=== PATIENT | male | born 1980 | race Caucasian/White ===

== ENCOUNTER 2020-06-15 09:09 | Outpatient (REF) | payer OTHER, SELFPAY ==
--- NOTE | ~2020-06-15 | US_ITS ---
EXAMINATION: US ABDOMEN COMPLETE CLINICAL INFORMATION: Lower abdominal pain. COMPARISON: Ultrasound limited 10/15/2019. TECHNIQUE: Real-time imaging of the abdominal viscera. FINDINGS: PANCREAS: Visualized portions appear unremarkable with the tail being obscured by overlying bowel gas. No mass or peripancreatic inflammatory change. ABDOMINAL AORTA: The proximal, mid, and distal segments are normal in caliber. INFERIOR VENA CAVA: Visualized portions are normal. LIVER: Normal. The liver is normal in size. The liver contour is normal. Parenchymal echogenicity is normal. No focal hepatic lesion. There is no intrahepatic biliary duct dilatation seen. GALLBLADDER: There is a 4 x 3 x 4 mm polyp present. The gallbladder is physiologically distended without evidence of stones, sludge, wall thickening or pericholecystic fluid. COMMON BILE DUCT: Normal in caliber measuring 0.3 cm in diameter. RIGHT KIDNEY: Normal. No hydronephrosis. No renal calculi or focal parenchymal lesions. The kidney measures 11.1 cm in maximum dimension. LEFT KIDNEY: Normal. No hydronephrosis. No renal calculi or focal parenchymal lesions. The kidney measures 11.8 cm in maximum dimension. SPLEEN: Unremarkable. The spleen measures 9.7 cm in maximum dimension. FREE FLUID: None. US/US abdomen complete IMPRESSION: 4 mm gallbladder polyp.
== END 2020-06-15 09:10 | disposition home or self-care (01) ==
LOC: HO.US 09:09
PROVIDERS: Visit Provider Nurse Practitioner Primary Care
DX: R10.30 Lower abdominal pain, unspecified (principal)
CPT/HCPCS: 76700

== ENCOUNTER → 2020-07-11 10:51 | Outpatient (REF) | payer OTHER, SELFPAY ==
--- NOTE | 2020-07-11 10:55 | CA_ITS ---
Acquisition Time: 2020-07-11 11:01:44 Total Exercise Time: 00:07:56 Test Indications: CP, FATIGUE Medications: SEE CHART Protocol: VINH Max HR: 169 BPM 93% of Pred: 181 BPM Max BP: 162/084 mmHG Max Work Load: 9.9 METS Exercise stress ECHO using Vinh protocol, total of 7 min 56 sec. METS 9.90 and TAPHR up to 93 %. Pt tolerated well, denies any anginal sx.. EKG without arrhythmias, no ischemic changes seen during exercise or in recovery. ECHO images taken at rest and immediately after peak exercise HR achieved. Definity contrast used. Normotensive response to exercise. Test reviewed with Dr. Cotto. Exercise stress echocardiogram was reviewed. At rest, there is normal LVEF and wall motion. With peak exercise, there is appropriate augmentation of wall thickening and contractility. There is normal decrease in end-systolic volumes. Overall, this is a normal study. Referred By: Shahana Lara Overread By: BEHZAD COTTO
== END ==
LOC: HO.CARD 10:51
PROVIDERS: Visit Provider Nurse Practitioner Primary Care
DX: R07.89 Other chest pain (principal); R06.02 Shortness of breath
CPT/HCPCS: 93350; Q9957

== ENCOUNTER 2020-08-01 09:05 | Outpatient (REF) | payer OTHER, SELFPAY ==
--- NOTE | ~2020-08-01 | US_ITS ---
EXAMINATION: US ABDOMEN LIMITED CLINICAL INFORMATION: Gallbladder polyp. COMPARISON: Ultrasound abdomen complete 06/15/2020 and ultrasound limited abdomen 10/15/2019. TECHNIQUE: Real-time imaging of the right upper quadrant abdominal viscera. FINDINGS: PANCREAS: Normal. LIVER: The liver is normal in size. The liver contour is normal. Liver echogenicity is slightly increased. There is a 2 x 1.2 x 1.5 cm echogenic area in the liver adjacent to the gallbladder and common bile duct. This was not appreciated on previous exam. There is no intrahepatic biliary duct dilatation seen. GALLBLADDER: The gallbladder is normal in size. There is a small 2 x 3 mm echogenic density adjacent to the gallbladder wall suggestive of a gallbladder wall polyp. Gallbladder is otherwise unremarkable. No stones are seen. COMMON BILE DUCT: Normal in caliber measuring 0.2 cm in diameter. RIGHT KIDNEY: Normal. No hydronephrosis. No renal calculi or focal parenchymal lesions. The kidney measures 10.8 cm in maximum dimension. FREE FLUID: None. US/US abdomen limited IMPRESSION: Small gallbladder wall polyp. Slightly echogenic liver. Newly appreciated 2.1 x 1.2 x 1.5 cm echogenic area in the liver near the gallbladder and common bile duct. This may represent a hemangioma.
== END 2020-08-01 09:06 | disposition home or self-care (01) ==
LOC: HO.US 09:05
PROVIDERS: Visit Provider Nurse Practitioner Primary Care
DX: R10.30 Lower abdominal pain, unspecified (principal); K82.0 Obstruction of gallbladder
CPT/HCPCS: 76705

== ENCOUNTER 2020-10-12 12:21 | Outpatient (REF) | payer OTHER, SELFPAY ==
[2020-10-12 14:55] LABS: MANUAL DIFF FLAG NO
[2020-10-12 14:59] LABS: Basophils Percent Auto 0.4 % (0-2); Eosinophils Absolute Auto 0.2 X10*3/uL (0.0-0.4); Eosinophils Percent Auto 2.4 % (0-4); Hematocrit 47.3 % (42-52); Imm Gran Abs Auto 0.04 X10*3/uL (0.00-0.03); Imm Gran Pct Auto 0.4 % (0.0-0.4); Lymphocytes Absolute Auto 2.1 X10*3/uL (1.2-4.9); Lymphocytes Percent Auto 23.5 % (20-40); Mean Corpuscular HGB Conc 33.8 g/dl (31.0-36.0); Mean Corpuscular Hemoglobin 29.5 pg (27.0-33.0); Mean Corpuscular Volume 87.3 fL (80-98); Mean Platelet Volume 10.3 fL (9.4-12.4); Monocytes Absolute Auto 0.7 X10*3/uL (0.1-1.2); Monocytes Percent Auto 8.1 % (2-11); Neutrophils Absolute Auto 5.9 X10*3/uL (2.0-8.3); Neutrophils Percent Auto 65.2 % (45-73); Platelet Count 318 X10*3/uL (160-400); Red Blood Count 5.42 X10*6/uL (4.60-5.80); Red Cell Distribution Width 12.4 % (11.0-16.0)
[2020-10-12 15:16] LABS: Alanine Aminotransferase 23 U/L (0-40); Albumin Level 4.6 g/dL (3.5-5.0); Alkaline Phosphatase 68 U/L (39-117); Anion Gap 11 (12-20); Aspartate Amino Transferase 19 U/L (5-37); Bilirubin Total 0.4 mg/dL (0.0-1.0); Blood Urea Nitrogen 11 mg/dL (9-16); C Reactive Protein 0.66 mg/dL (< or = 0.50); Calcium 10.3 mg/dL (8.4-10.2); Carbon Dioxide 28 mmol/L (22-29); Chloride 106 mmol/L (96-108); Estimated Glomerular Filt Rate > 60; Glucose Random 91 mg/dL (60-115); Potassium 4.6 mmol/L (3.3-5.1); Sodium 140 mmol/L (135-145)
[2020-10-12 15:26] LABS: Glucose Urine UA NEG (NEG); Leukocyte Esterase Urine NEG (NEG); Nitrite Urine NEG (NEG); Specific Gravity - Urine 1.025 (1.005-1.025); Urine Blood NEG (NEG); Urine Ketones NEG (NEG); Urine Protein 1+ MG/DL (NEG-TRACE)
[2020-10-12 15:27] LABS: Appearance Urine CLEAR; Color Urine YELLOW
[2020-10-12 15:43] LABS: RBC Urine 0 /HPF (0); Squamous Epithelial Cell Urine 1+ /LPF; WBC Urine 0 /HPF (0-4)
[2020-10-12 15:49] LABS: Erythrocyte Sedimentation Rate 7 MM/HR (0-15)
== END 2020-10-12 12:22 | disposition home or self-care (01) ==
LOC: HO.LAB 12:21
PROVIDERS: PCP Nurse Practitioner Primary Care; Referring Provider Nurse Practitioner Primary Care; Visit Provider Physician Assistant
DX: R10.11 Right upper quadrant pain (principal)
CPT/HCPCS: 36415; 80053; 81001; 85025; 85652; 86140; 99202

== ENCOUNTER → 2021-01-02 08:39 | Outpatient (BNVA) | payer OTHER, SELFPAY | PROVIDERS: PCP Nurse Practitioner Primary Care; Referring Provider Nurse Practitioner Primary Care; Visit Provider Physician Assistant | DX: Z13.89 Encounter for screening for other disorder (principal) | CPT/HCPCS: Q3014 ==

== ENCOUNTER 2022-07-12 13:19 | Outpatient (REF) | payer OTHER, SELFPAY ==
--- NOTE | ~2022-07-12 | US_ITS ---
EXAMINATION: US ABDOMEN LIMITED CLINICAL INFORMATION: Umbilical hernia. COMPARISON: Ultrasound abdomen limited dated 08/01/2020. Ultrasound abdomen complete dated 06/15/2020. TECHNIQUE: Real-time imaging of the area below the umbilicus. US/US abdomen limited FINDINGS/IMPRESSION: Targeted images of the area of concern in the infraumbilical regional without evidence of hernia, mass or collection. If indicated, correlation with CT or MRI could be obtained.
== END 2022-07-12 13:20 | disposition home or self-care (01) ==
LOC: HO.US 13:19
PROVIDERS: PCP Nurse Practitioner Primary Care; Visit Provider Nurse Practitioner Primary Care
DX: K42.9 Umbilical hernia without obstruction or gangrene (principal)
CPT/HCPCS: 76705

== ENCOUNTER → 2023-05-30 07:23 | Outpatient (BNVA) | payer OTHER, SELFPAY | PROVIDERS: PCP Nurse Practitioner Primary Care; Visit Provider Nurse Practitioner Family | DX: G47.33 Obstructive sleep apnea (adult) (pediatric) (principal); J34.89 Other specified disorders of nose and nasal sinuses; R40.0 Somnolence | CPT/HCPCS: 99202 ==

== ENCOUNTER 2023-05-30 10:50 | Outpatient (AMB) | payer OTHER, SELFPAY ==
--- NOTE | 2023-05-30 11:03 | A.OFFVIS_ITS ---
Intake Vital Signs 05/30/23 11:15 Height 5 ft 7 in Weight 247 lb BMI 38.7 BP 134/80 Blood Pressure Location Lt brachial Position Sitting Pulse 80 Pulse Source Pulse Oximeter Pulse Oximetry (%) 95 Oxygen Delivery Method Room Air Intake Visit Reasons: ENP-hx KHANH not using CPAP w/dyspenea-Conf Intake Note: Patient presents for KHANH. Right side of nose feels constant pressure, can't sleep at night and gasp for air. Feels he can't breath. 3 years ago had a CPAP machine and he had to move someone throughout his machine. Doesn't remember what company he had Allergies penicillin V Allergy (Mild, Verified 05/30/23 11:11) unknown Penicillins [PCN] Allergy (Mild, Verified 05/30/23 11:11) RASH,THROAT SWELLING HPI HPI Comments History of Present Illness Details 42 y/o male patient presents for new in- person visit to manage sleep apnea. Certified anesthesiology medical doctor Nia Wetzel helped for this visit. Pt reports he was diagnosed with KHANH and treated with CPAP. He lost CPAP about 3 years ago when he moved. Pt also reports nasal obstruction. He had nasal surgery done many years ago. He feels right nasal pressure and obstruction since the procedure. He could breathe well due to the right side nasal obstruction. Sleep questionnaire: Have you ever been diagnosed with a sleep disorder? Yes, KHANH. Have you ever had a sleep study in the past? Yes. Have you ever been treated for a sleep disorder? Yes, CPAP. Do you take medications for a sleep disorder? No. Do you snore? Yes. Do you wake up gasping at night? Yes. Do you have episodes of apneas? Yes. If yes, are they witnessed? Yes. Do you have episodes of nocturnal chest pain or dyspnea? Yes. Do you have difficulty initiating sleep? Yes. Do you have difficulty maintaining sleep? Yes. Do you wake up tired? No. Do you have headaches upon awakening? No. Do you wake up with dry mouth or throat? Yes. Do you have GERD? No. Do you have nocturia? No. Do you have nocturnal leg cramps? No. Do you have symptoms of restless legs? Yes. Do you act out your dreams? Yes. Sleep hygiene questionnaire: What is your usual sleep routine? Usual bedtime is at 10 pm; Usual wake up time is at 6 am. Do you take naps? Yes. Is your sleep environment cool, dark, and quiet? Yes. Do you exercise? No. Do you take caffeine or other stimulants? Cola and coffee daily. Do you use electronics in bed? Yes. What is your work schedule? N/A. Hypersomnolence questionnaire: Do you have daytime tiredness or fatigue? Yes. Do you easily fall asleep when inactive? No. Have you ever had episodes of sudden weakness? No. Have you ever had episodes of sudden weakness associated with strong emotions? No. PFSH Medical History (Updated 05/30/23 @ 11:41 by Markie Rosas CNP) Illiterate Abdominal hernia Family History Mother Stomach cancer Father Cardiac abnormality Mother Stomach cancer Father History of heart attack Brother Stomach cancer Social History Household Members: None Housing: Apartment Alcohol intake: current Comment: Ocasionally Patient Tobacco Use Status: Never used Tobacco Substance Use Type: Marijuana Current occupational status: unemployed Review of Systems Const All systems reviewed & are unremarkable except as noted in HPI and below Physical Exam Vital Signs: Last Vital Signs Pulse 80 05/30/23 11:15 BP 134/80 05/30/23 11:15 Pulse Ox 95 05/30/23 11:15 Oxygen Delivery Method Room Air 05/30/23 11:15 BMI result Body Mass Index 38.7 Const General: cooperative Nutritional Appearance: obese Orientation/consciousness: patient oriented x3 Limitations: language barrier Neck Neck: Yes full ROM and Yes supple Resp Effort & Inspection: normal respiratory effort and able to speak in complete sentences Neuro General: patient oriented x3, gait normal and moves all extremities Cranial nerves: Yes CN's II-XII intact bilaterally Cognition (Neuro): normal cognition Gait exam (Neuro): Normal gait present Motor exam (neuro): 5/5 motor strength present throughout Psych Appearance: grossly normal Mental Status: mental status grossly normal Speech and movement: Normal speech and movement present Affect: normal affect Attitude: cooperative Assessment & Plan Assessment & Plan (1) KHANH (obstructive sleep apnea): Code(s): G47.33 - Obstructive sleep apnea (adult) (pediatric) (2) Daytime sleepiness: Code(s): R40.0 - Somnolence (3) Nasal obstruction: Code(s): J34.89 - Other specified disorders of nose and nasal sinuses Plan Pt is advised to undergo home sleep study to assess for sleep apnea. Will f/u with pt after study to discuss results and appropriate treatment options. Sleep hygiene education provided. Refer patient to ENT for evaluation of nasal obstruction. Pt to call with any worsening concerns or questions. Orders: Referrals Ear/Nose/Throat Referral G47.33 - Obstructive sleep apnea (adult) (pediatric), J34.89 - Other specified disorders of nose and nasal sinuses Coding Level of Care Code New Pt Level 3 (66290) Diagnoses KHANH (obstructive sleep apnea) G47.33 Daytime sleepiness R40.0 Nasal obstruction J34.89
[2023-05-30 11:15] VITALS: BP 134/80; PULSE 80; O2SAT 95; BMI 38.7
== END 2023-05-30 11:38 | disposition home or self-care (01) ==
PROVIDERS: PCP Nurse Practitioner Primary Care; Visit Provider Nurse Practitioner Family
DX: G47.33 Obstructive sleep apnea (adult) (pediatric) (principal); R40.0 Somnolence; J34.89 Other specified disorders of nose and nasal sinuses
CPT/HCPCS: 99203